=== PATIENT | male | born 1950 | race Caucasian/White ===

== ENCOUNTER 2016-05-04 08:34 | Day surgery (SDC) | payer OTHER ==
[~2016-05-04 08:34] MED LIST: RINGERS SOLUTION,LACTATED 1,000 ML IV PRN
[2016-05-04] MEDS ORDERED: RINGERS SOLUTION,LACTATED 1,000 ML IV ONE (09:09)
[2016-05-04 11:40] VITALS: BP 142/69
--- NOTE | 2016-05-04 17:41 | OR ---
Operative Report - Dictated Report Narrative: OPERATIVE REPORT DATE OF OPERATION: 05/04/2016 PREOPERATIVE DIAGNOSIS: No prior dedicated colon studies. Family history of colon cancer. POSTOPERATIVE DIAGNOSIS: Poor prep with incomplete colonoscopy OPERATION: Attempted Colonoscopy SURGEON: Sabrina Lehman MD ANESTHESIA: LAQUITA Strauss CRNA INDICATIONS FOR PROCEDURE: The patient is a 65-year-old male referred by Dr. Arcos. He has had no previous dedicated colon studies. The patient's father had colon cancer in his 70s. FINDINGS: Extremely poor prep precluding diagnostic exam. NARRATIVE OF PROCEDURE: The patient was identified in the holding area, and prior to the administration of anesthetic, a multidisciplinary timeout was observed. With the patient in the left lateral position and after the administration of intravenous sedation, the perineum was inspected. There was no evidence of pilonidal disease or skin breakdown. The external appearance of the anus was normal. Sphincter tone was good. The flexible fiberoptic colonoscope was inserted into the rectum which was insufflated with air. The rectal mucosa and submucosal vascular pattern appeared normal, however the prep was seen to be incomplete with a large amount of liquid and particulate stool remaining. The rectum was suctioned and irrigated until the scope could be advanced into the sigmoid colon. The scope was advanced to approximately 80 cm however it was apparent that the amount of liquid and particulate stool present would preclude a diagnostic quality exam. Therefore the scope was withdrawn to the level of the rectum. As much insufflated air as possible was removed. The scope was withdrawn from the patient and the procedure terminated. The patient tolerated the anesthetic and procedure well without complication and was transferred back to the ambulatory surgery area awake and in stable condition. The patient remained stable throughout a period of postoperative observation. He denied abdominal discomfort, was able to tolerate by mouth intake, and was up without assistance. I shared the operative findings with the patient and he was given copies of the photographs which appear in the medical record. I explained that further preparation would be necessary for diagnostic exam which can be accomplished on 05/06/2016. He was discharged home with instructions not to engage in hazardous activity today, but may resume normal activity tomorrow, and maintaining clear liquid diet. He is to use sliding scale insulin. He is to hold Lantus. He is to continue those other medications as listed in the history and physical exam. A prescription for Suprep prep kit was sent electronically, which he is to use on 05/05/2016. His daughter was present and the instructions were reviewed with her as well. He will return for colonoscopy on 05/06/2016. Reviewed and electronically signed
== END 2016-05-04 08:35 | disposition home or self-care (01) ==
LOC: AMB 08:34
PROVIDERS: ATTEND Surgery
PROC: 0DJD8ZZ Inspection of Lower Intestinal Tract, Via Natural or Artificial Opening Endoscopic (ICD-10-PCS; principal; 2016-05-04 09:50)
DX: Z12.11 Encounter for screening for malignant neoplasm of colon (principal); I12.9 Hypertensive chronic kidney disease with stage 1 through stage 4 chronic kidney disease, or unspecified chronic kidney disease; E11.22 Type 2 diabetes mellitus with diabetic chronic kidney disease; N18.3 Chronic kidney disease, stage 3 (moderate); E78.00 Pure hypercholesterolemia, unspecified; Z68.43 Body mass index [BMI] 50.0-59.9, adult; Z80.0 Family history of malignant neoplasm of digestive organs

== ENCOUNTER 2016-05-06 05:44 | Day surgery (SDC) | payer OTHER ==
[2016-05-06] MEDS ORDERED: RINGERS SOLUTION,LACTATED 1,000 ML IV PRN (06:00)
[2016-05-06] MEDS ORDERED: RINGERS SOLUTION,LACTATED 1,000 ML IV ONE (06:09)
[2016-05-06 09:27] VITALS: BP 124/57
--- NOTE | 2016-05-06 18:46 | OR ---
Operative Report - Dictated Report Narrative: OPERATIVE REPORT DATE OF OPERATION: 05/06/2016 PREOPERATIVE DIAGNOSIS: No prior dedicated colon studies. Poor prep and incomplete exam on 05/04/2016 POSTOPERATIVE DIAGNOSIS: Obstructive sleep apnea. 0.5 cm lobulated polyp in the transverse colon and 4 mm polyp in the ascending colon (pathology pending) OPERATION: Colonoscopy with hot biopsy forceps polypectomy in the ascending colon and snare polypectomy in the proximal transverse colon SURGEON: Sabrina Lehman MD ANESTHESIA: MAC Ryan Peoples CRNA INDICATIONS FOR PROCEDURE: The patient is a 65-year-old male referred for initial colon screening by Dr. Arcos. Colonoscopy was attempted on 05/04/2016 however the patient's prep was poor and he has undergone an additional day of clear liquids with a second Suprep colon prep, and is brought for re-exam. FINDINGS: Profound obstructive sleep apnea complicating his sedation. Very capacious colon with 0.5 cm lobulated polyp in the transverse colon and 4 mm polyp in the ascending colon. Remaining liquid stool however this could be suctioned sufficient for diagnostic exam. NARRATIVE OF PROCEDURE: The patient was identified in the holding area, and prior to the administration of anesthetic, a multidisciplinary timeout was observed. With the patient in the left lateral position and after the administration of intravenous sedation, the perineum was inspected. There was no evidence of pilonidal disease or skin breakdown. The external appearance of the anus was normal. Sphincter tone was good. The flexible fiberoptic colonoscope was inserted into the rectum which was insufflated with air. The rectal mucosa and submucosal vascular pattern appeared normal, the prep was seen to be only fair with a large amount of liquid material remaining. Suction was utilized to evacuate the rectum and sigmoid until the scope could be advanced. The scope was advanced through the sigmoid colon, up the descending colon, and around the splenic flexure where the triangular haustral architecture of the transverse colon was seen. The scope was advanced across the transverse colon where distal to the hepatic flexure a 0.5 cm lobulated area of polypoid change was encountered. This was biopsied and then thoroughly destroyed with electrocautery. The last fragments were amputated with cautery snare. The area appeared to be complete and hemostatic. The scope was advanced around the hepatic flexure to the cecum, where the confluence of tenia and the ileocecal valve were identified. The mucosa at this level appeared normal. The scope was then slowly withdrawn in a circular fashion so that all aspects of colonic mucosa were inspected. In the distal ascending colon a 0.4 cm area of polypoid change was encountered. There was profound respiratory motion due to the patient's underlying MAYNOR and the polyp could not be grasped. It was instead destroyed in place with repeated applications of electrocautery until it appeared to be completely denatured and hemostatic. The colon was very capacious in character and slightly redundant and course. The haustral architecture appeared well preserved throughout with no evidence of external compression. The mucosa and submucosal vascular pattern appeared normal, specifically there was no gross evidence to suggest colitis or inflammatory bowel disease and no AV malformations were seen. No fredo diverticular openings were demonstrated. The scope was gradually withdrawn to the level of the rectum. As much insufflated air as possible was removed. The scope was withdrawn from the patient and the procedure terminated. The patient tolerated the anesthetic poorly due to his obstructive sleep apnea, however his SaO2 was maintained at acceptable levels throughout the procedure. There were no complications to the surgical procedure itself, however, and he was transferred back to the ambulatory surgery area awake and in stable condition. The patient remained stable throughout a period of postoperative observation. He denied abdominal discomfort, was able to tolerate by mouth intake, and was up without assistance. I shared the operative findings with the patient and he was given copies of the photographs which appear in the medical record. He was discharged home with instructions not to engage in hazardous activity today, but may resume normal activity tomorrow, and advance diet as tolerated. He is to continue those medications as listed in the history and physical exam. I made arrangements to contact him with the biopsy reports and will make additional recommendations for treatment and follow-up based upon those results. Reviewed and electronically signed]
== END 2016-05-06 05:45 | disposition home or self-care (01) ==
LOC: AMB 05:44
PROVIDERS: ATTEND Surgery
PROC: 0DBL8ZX Excision of Transverse Colon, Via Natural or Artificial Opening Endoscopic, Diagnostic (ICD-10-PCS; 2016-05-06)
PROC: 0DBK8ZX Excision of Ascending Colon, Via Natural or Artificial Opening Endoscopic, Diagnostic (ICD-10-PCS; principal; 2016-05-06 07:00)
DX: Z12.11 Encounter for screening for malignant neoplasm of colon (principal); D12.2 Benign neoplasm of ascending colon; D12.3 Benign neoplasm of transverse colon; I12.9 Hypertensive chronic kidney disease with stage 1 through stage 4 chronic kidney disease, or unspecified chronic kidney disease; N18.3 Chronic kidney disease, stage 3 (moderate); E11.22 Type 2 diabetes mellitus with diabetic chronic kidney disease; E78.00 Pure hypercholesterolemia, unspecified; I73.9 Peripheral vascular disease, unspecified; M19.90 Unspecified osteoarthritis, unspecified site; G47.33 Obstructive sleep apnea (adult) (pediatric); Z68.43 Body mass index [BMI] 50.0-59.9, adult; Z80.0 Family history of malignant neoplasm of digestive organs

== ENCOUNTER 2017-02-27 10:30 | Emergency (ER) | payer OTHER ==
[2017-02-27 10:38] VITALS: BP 143/70
--- NOTE | 2017-02-27 10:51 | ERNOTE ---
Allergy Symptoms - ER Time Seen by Provider: 02/27/17 10:39 Source: patient, family Exam Limitations: no limitations Immunizations: IMMUNIZATION HX Immunizations Up to Date Yes History of Influenza Vaccine Yes Hx Pneumococcal Vaccination Yes Allergies/Adverse Reactions: Allergies gabapentin Allergy (Mild, Verified 02/27/17 10:38) EDEMA Penicillins Allergy (Mild, Verified 02/27/17 10:38) Hives Home Medications: HOME MEDICATIONS Amitriptyline HCl [Elavil] 50 mg PO HS 04/24/13 [Last Taken 04/23/13 21:00] Enalapril Maleate 20 mg PO BID 04/24/13 [Last Taken 05/05/16] Furosemide [Lasix] 80 mg PO BID 12/01/13 [Last Taken Unknown] Tamsulosin HCl [Flomax] 0.4 mg PO DAILY 12/01/13 [Last Taken Unknown] hydrALAZINE HCL [Apresoline] 25 mg PO TID 12/01/13 [Last Taken Unknown] Allopurinol [Zyloprim] 300 mg PO BID 04/30/16 [Last Taken 05/05/16] Aspirin [Aspirin Enteric Coated] 81 mg PO DAILY 04/30/16 [Last Taken Unknown] Atorvastatin Calcium [Lipitor] 40 mg PO HS 04/30/16 [Last Taken Unknown] Blood-Glucose Meter [Blood Glucose Monitoring] 1 each [facility] 04/30/16 [Last Taken Unknown] Fesoterodine Fumarate [Toviaz] 4 mg PO DAILY 04/30/16 [Last Taken Unknown] Finasteride [Proscar] 5 mg PO DAILY 04/30/16 [Last Taken Unknown] Cholecalciferol (Vitamin D3) [Vitamin D3] 1,000 unit PO DAILY 02/27/17 [Last Taken Unknown] Clotrimazole [Mycelex Rachel] 10 mg MM 5XD #50 rachel 02/27/17 [Last Taken Unknown] Insulin Aspart [Novolog] 40 units SC TIDWM 02/27/17 [Last Taken Unknown] Insulin Detemir [Levemir] 75 units SC BID 02/27/17 [Last Taken Unknown] Metoprolol Tartrate [Lopressor] 50 mg PO BID 02/27/17 [Last Taken Unknown] - History of Present Illness Narrative: Patient noticed lip and tongue swelling three days ago in the evening, no throat swelling, no difficulty breathing, symptoms are not getting worse but also not getting better. He denies any new medications. He is a diabetic Date (Duration): 02/24/17 Timing: Present: constant Location skin rash/itching: Present: none Location swelling: Present: lip(s), tongue Identified cause?: No Exposure: Present: none, ERVIN inhibitor. Absent: antibiotic, aspirin, NSAID Modifying Factors (Improves): Reports: other - hasn't tried any Modifying Factors (Worsens): Reports: nothing Similar symptoms previously: No Prior Treament: Denies: recently seen, similar symptoms before Review of Systems - Review of Systems Constitutional: Absent: recent illness, fever ENT: Present: See HPI. Absent: nose congestion, nasal drainage, sore throat Respiratory: Absent: shortness of breath, cough Cardiology: Absent: chest pain Gastrointestinal/Abdominal: Absent: nausea, vomiting, diarrhea, abdominal pain Genitourinary: Present: no symptoms reported Musculoskeletal: Present: no symptoms reported Skin: Absent: rash Neurological: Absent: headache, weakness, numbness - Patient's Past Medical History Patient History - Medical: Diabetes Type 2 Insulin Dependent, Obesity, Osteoarthritis, Renal Failure, Other Patient History - Cardiac/Respiratory: Coronary Heart Disease, Hypertension, Hyperlipidemia, Peripheral Vascular Disease, Sleep Apnea Patient History - Cancer: No Hx of Cancer Patient History - Surgical Procedures: Cataracts, Colonoscopy, Total Knee Replacement, T & A, Vasectomy, Other, Hernia Repair, Orthopedic, Urology Patient History - Other: None - Family History Father Family History - Medical: , No pertinent hx Family History - Cardiac/Respiratory: No pertinent hx Family History - Cancer: Colon, Leukemia, Prostate Mother Family History - Medical: , No pertinent hx Family History - Cardiac/Respiratory: No pertinent hx Family History - Cancer: Breast Sister Family History - Medical: No pertinent hx Family History - Cardiac/Respiratory: Other Family History - Cancer: No pertinent family hx - Social History Abuse History: No History of abuse Psych History: No pertinent hx Smoking Status: Never smoker Have you smoked in the past 12 months: No - Immunizations Immunizations Up to Date: Yes Hx Pneumococcal Vaccination: Yes History of Influenza Vaccine: Yes Physical Exam - Physical Exam General Appearance: Present: wd/wn, alert, no apparent distress, obese Eye Exam: Normal inspection: bilateral, PERRL: bilateral Ears, Nose, Throat: Present: other - white non removable plaues on both cheeks, superficial ulceration on lower lip and tongue Neck: Present: normal inspection Respiratory: Present: no respiratory distress, normal breath sounds, no accessory muscle use, lungs clear Cardiovascular/Chest: Present: regular rate, rhythm, no murmur Gastrointestinal/Abdominal: Present: nontender, soft Neurological Exam: Present: alert, oriented, normal mood/affect Skin Exam: Present: normal color, warm/dry. Absent: skin rash ED Progress - Vital Signs Patient's Vital Signs:: I have reviewed the patient's vital signs. Vital Signs: Vital Signs 02/27/17 10:34 Temperature 37.0 C Respiratory 74 H Rate Blood Pressure 143/70 O2 Sat by Pulse 91 Oximetry - Progress/Reassessment Chief Complaint: Allergic Reaction Progress Note-Subjective: 02/27/17 11:00 discussed diagnosis and plan patient's HbA1c in the 8 and 9 range the last six months, most likely contributing to oral thrush Departure Clinical Impression: Thrush, oral - Departure Disposition: Home self-care Condition: Stable Instructions: Stomatitis, [id number] Additional Instructions: call your doctor if you don't get better in 3-4days Referrals: Edilia Arcos DO [Primary Care Provider] - Prescriptions: Clotrimazole [Mycelex Rachel] 10 mg MM 5XD #50 rachel
== END 2017-02-27 11:11 | disposition home or self-care (01) ==
LOC: ER 10:30
DX: B37.0 Candidal stomatitis (principal); E11.9 Type 2 diabetes mellitus without complications; Z79.4 Long term (current) use of insulin; I50.9 Heart failure, unspecified; I10 Essential (primary) hypertension; E78.5 Hyperlipidemia, unspecified

== ENCOUNTER 2018-02-17 09:13 | Inpatient (IN) | payer MEDICARE, OTHER ==
[~2018-02-17 09:13] MED LIST changes: -RINGERS SOLUTION,LACTATED 1,000 ML IV PRN; +ceFAZolin SODIUM 1 GM VIAL IV PRN
[2018-02-17] MEDS: RINGER'S SOLUTION,LACTATED 1,000 ML IV PRN ×2 (10:07→15:01)
--- NOTE | 2018-02-17 10:32 | ANES ---
Anesthesia Pre Procedure Eval Vitals/Labs: Last Vital Signs Temp 37.3 C 02/17/18 09:24 Pulse 71 02/17/18 09:24 Resp 16 02/17/18 09:24 BP 149/67 02/17/18 09:24 Pulse Ox 98 02/17/18 09:24 HOME MEDICATIONS Amitriptyline HCl [Elavil] 50 mg PO HS 04/24/13 [Last Taken 04/23/13 21:00] Furosemide [Lasix] 80 mg PO BID 12/01/13 [Last Taken Unknown] Tamsulosin HCl [Flomax] 0.4 mg PO DAILY 12/01/13 [Last Taken Unknown] hydrALAZINE HCL [Apresoline] 25 mg PO TID 12/01/13 [Last Taken Unknown] Allopurinol [Zyloprim] 300 mg PO BID 04/30/16 [Last Taken 05/05/16] Blood-Glucose Meter [Blood Glucose Monitoring] 1 ea [facility] 04/30/16 [Last Taken Unknown] Fesoterodine Fumarate [Toviaz] 4 mg PO DAILY 04/30/16 [Last Taken Unknown] Finasteride [Proscar] 5 mg PO DAILY 04/30/16 [Last Taken Unknown] Cholecalciferol (Vitamin D3) [Vitamin D3] 1,000 unit PO DAILY 02/27/17 [Last Taken Unknown] insulin detemir (U- 100) 100 unit/mL subcutaneous solution 80 unit SUB-Q BID #15 ml 10/19/17 [Last Taken Unknown] enalapril maleate 20 mg tablet 20 mg PO BID #60 tab 10/26/17 [Last Taken Unknown] metoprolol tartrate 50 mg tablet 50 mg PO BID #60 tab 10/26/17 [Last Taken Unknown] exenatide ER 2 mg subcutaneous extended release suspension 2 mg SUB-Q Q7D #4 ea 10/29/17 [Last Taken Unknown] insulin aspart U- 100 100 unit/mL subcutaneous solution 50 unit SUB-Q TIDWM #15 ml 11/17/17 [Last Taken Unknown] atorvastatin 40 mg tablet 40 mg PO HS #30 tab 01/17/18 [Last Taken Unknown] glimepiride 4 mg tablet 4 mg PO DAILY #90 tab 02/02/18 [Last Taken Unknown] hydrocodone 5 mg-acetaminophen 325 mg tablet See Rx Instructions .ROUTE .COMPLEX #30 tab 02/04/18 [Last Taken Unknown] Allergies/Adverse Reactions: Allergies Allergy/AdvReac Type Severity Reaction Status Date / Time gabapentin Allergy Mild EDEMA Verified 02/17/18 09:32 Penicillins Allergy Mild Hives Verified 02/17/18 09:32 - Planned Procedure Planned Procedure: prophylactic Nail Fixation proximal Femur/HDWR rem Medication List Reviewed:: Yes Allergies Verified: Yes Medical History (Last Reviewed 02/17/18 @ 10:31 by Carlos Kaufman CRNA) Diabetic neuropathy (Chronic) Diabetic nephropathy associated with type 2 diabetes mellitus (Chronic) MAYNOR on CPAP (Chronic) Gout (Chronic) CKD (chronic kidney disease) stage 3, GFR 30-59 ml/min (Chronic) Hyperlipidemia (Chronic) Hypertension (Chronic) Type II diabetes mellitus (Chronic) Malignancies bone Knee MCL sprain Onset Date: 09/08/17 Chronic kidney disease Onset Date: 06/2016 Stage 3 Diabetes Onset Date: Unknown Diabetic neuropathy Onset Date: ~06/2016 Essential (primary) hypertension Onset Date: 06/2016 Gout Onset Date: 06/26/16 Obesity Onset Date: ~2010 Osteoarthritis Onset Date: Unknown Peripheral vascular disease Onset Date: 2012 Pes planus Onset Date: ~03/2013 Surgical History (Last Reviewed 02/17/18 @ 10:31 by Carlos Kaufman CRNA) H/O colonoscopy Onset Date: 06/2016 [place]-tubular adenomas History of carpal tunnel release Onset Date: 12/2013 [place]-left History of cataract removal with insertion of prosthetic lens Onset Date: 2004 S/P right knee arthroscopy Onset Date: 1998 Dr. Callahan Femoral distal fracture Onset Date: 08/2015 [facility]-cyvae-FAF H/O excision of ganglion cyst Onset Date: 1999 right foot-Dr. Spencer H/O total knee replacement Onset Date: 04/201004/15/10-Dr. Sin History of YAG laser capsulotomy of lens Onset Date: 200704/18/07, 05/16/07 left, right History of cardiac cath Onset Date: 2004 History of cystoscopy Onset Date: 12/2015 History of knee replacement Onset Date: 04/2007 left-Dr. Callahan History of vasectomy Onset Date: Unknown Hx of tonsillectomy Onset Date: Unknown Retinal detachment Onset Date: 03/2008 S/P TURP Onset Date: 09/2016 Dr. Hodge S/P repair of inguinal hernia Onset Date: 1971 right Family History (Last Reviewed 02/17/18 @ 10:31 by Carlos Kaufman CRNA) Father Cancer colon, prostate, leukemia Mother Cancer breast - Family Anesthesia History Family History:: no untoward family reactions to anesthesia - Airway/Neck/Teeth Neck Exam: limited range of motion Mallampatti Score: 4 Thyromental (T-M) distance: > 6 cm Mandibulo Hyoid distance: > 3 cm - Respiratory Respiratory: lungs clear Smoking Status: Never smoker Sleep Apnea currently treated: Yes - Cardiovascular Patient History - Cardiac/Respiratory: Hypertension, Hyperlipidemia Tolerates Activity: Poor Heart Sounds: S1 & S2, Regular - Anesthesia Assessment and Plan ASA Class: PS, III Anesthesia Type Plan: General LMA
[2018-02-17] MEDS ORDERED: BUPIVACAINE HCL/EPINEPHRINE 50 ML VIAL IJ ONE (15:53)
[2018-02-17] MEDS ORDERED: oxyCODONE HCL/ACETAMINOPHEN 1 TAB TABLET PO PRN (17:11)
[2018-02-17] MEDS ORDERED: MORPHINE SULFATE 2 MG/ML DISP.SYRIN IV PRN (17:11)
[2018-02-17] MEDS ORDERED: ZOLPIDEM TARTRATE 5 MG TABLET PO PRN (17:11)
[2018-02-17] MEDS ORDERED: ACETAMINOPHEN 500 MG TABLET PO PRN (17:11)
[2018-02-17] MEDS ORDERED: MAGNESIUM HYDROXIDE 30 ML UDC PO PRN (17:11)
[2018-02-17] MEDS ORDERED: diphenhydrAMINE HCL 50 MG/ML VIAL IV PRN (17:11)
[2018-02-17] MEDS ORDERED: MAG HYDROX/ALUMINUM HYD/SIMETH 30 ML UDC PO PRN (17:11)
--- NOTE | 2018-02-17 17:19 | ANES ---
Post Anesthesia Assessment - Vital Signs Vitals: Last Vital Signs Temp 36.0 C 02/17/18 17:00 Pulse 57 L 02/17/18 17:15 Resp 23 H 02/17/18 17:15 BP 126/56 02/17/18 17:15 Pulse Ox 99 02/17/18 17:15 Airway Patency: Normal - Mental Status Level Of Consciousness: Drowsy - Pain Level Pain Score: 4 - N/V Assessment Nausea/Vomiting Presence: None Dehydration:: No
--- NOTE | 2018-02-17 17:19 | ANES ---
Post Anesthesia Discharge - Transfer of Care Transfer of Care handoff given to nurse: Yes - Discharge from PACU Discharge from PACU when meets criteria: Yes
--- NOTE | 2018-02-17 17:36 | OR ---
Operative Report - Dictated Report Narrative: Date: 02/17/2018 Surgeon: Jacinto Ruiz M.D. Profile Saw Operator: Fran Chairez PA-C Preoperative diagnosis: Right pathologic intertrochanteric femur fracture Postoperative diagnosis: Right pathologic intertrochanteric femur fracture Operations and procedures: 1. Cephalo-medullary fixation right pathologic intertrochanteric femur fracture 2. Removal of deep implants right femur 3. Intraoperative interpretation of radiographs Anesthesia: Gen. with local Specimens: None Estimated blood loss: 250 Milliliters Retained implants: [employer] Trigen InterTAN 130 degree size 10 mm by 18 centimeter nail with 95 millimeter lag screw Complications: None Indications for procedure: Lloyd is a 67-year-old male with a history of previous right femur fracture as well as prostate cancer who developed right hip pain. He had an MRI which demonstrated marrow replacing lesions of the pelvis and bilateral proximal femurs concerning for metastatic disease. MRI also demonstrated what appear to be a nondisplaced fracture line through the right intertrochanteric region. We counseled him on treatment options and recommended prophylactic fixation for pain relief as well as to prevent progression of his fracture. The risks of , blood clots, bleeding, infection, nerve/tendon/blood vessel injury, malunion, nonunion, failure of implants, painful implants, arthrosis, and need for additional procedures were discussed. The extremity was marked and consent was obtained in clinic. Procedure: After marking the operative extremity in preop, the patient was taken to the operating room. A timeout was performed. IV antibiotics consisting of 2 g of Ancef were administered. A general anesthetic was induced by anesthesia, and the patient was then placed onto a fracture table with a well-padded perineal post. The non-operative leg was placed in a well-padded well leg troy in lithotomy position with an SCD on the leg. The operative leg was placed in a well-padded traction boot. Preliminary images were attained utilizing C-arm in both the AP and lateral views. This confirmed that we had obtained adequate visualization of the proximal femur and the proximal aspect of the patient's previously placed distal femoral locking plate and proximal screws in the femur. Next the hip was then prepped and draped in a standard sterile fashion. Attention was first turned towards the most proximal 2 screws of his previous distal femoral locking plate. Based on our preoperative measurements, we knew that we would have to remove the proximal 2 screws to be able to get an 18 cm short nail down. These were localized cutaneously with the C-arm and a approximately 5 cm incision was made over the lateral aspect of the proximal femur. Dissection was carried down through subcutaneous tissue to the level of the IT band which was divided longitudinally. A Liriano elevator was used to dissect down to the plate. Hohmann retractors were used anteriorly and posteriorly to expose the lateral aspect of the plate. The 2 locking caps overlying the 4 cortical locking screws of the Raulito plate were removed. On trying to remove the screws themselves, they were noted to be likely cold welded to the plate and we ended up stripping about trying to remove them with a screwdriver. We used a screw extraction set to finally remove both screws after significant effort. We then turned our attention back to placing our short nail. A guidewire was placed percutaneously proximal to the greater trochanter to carlitos a starting point at the tip of the greater trochanter centered on the lateral view. This was advanced down to the level below the lesser trochanter. A scalpel was utilized to dissect down to the greater trochanter in order to be able to advance the soft tissue protector down to bone. The entry reamer was then advanced down the proximal femur to the level of the lesser trochanter. The above nail was then selected and impacted into place. The outrigger was utilized in order to confirm the appropriate depth of the nail. The alignment device on the outrigger for the lag screw was then placed through the proximal aspect of our previous incision over the lateral femur. The guidewire was was placed into the femoral head in a center center position on AP and lateral views. A tip apex distance less than 25 mm combined was obtained. Once we felt that we had placed the guidewire in the appropriate position, it was measured. We then drilled to the appropriate depth with the drill bit for the lag screw. The lag screw was then secured in place ensuring that we were within the confines of the bone. We did not place the optional compression screw as this was a nondisplaced fracture and our construct would allow for controlled compression. He also did not place a distal interlocking screw secondary to the proximal aspect of the distal femoral locking plate being our way. The nail was secured allowing for controlled compression and the outrigger was removed. The wounds were then thoroughly irrigated. Final images were obtained. The hip was placed through range of motion and showed no crepitance. The deep fascia and IT band were closed with 0 Vicryl, the subcutaneous tissue with 3-0 Vicryl, and the skin was closed with nicci. Sterile dressings of Xeroform, 4 x 4s, ABDs, and Medipore tape were applied. All sponge, sharp, and instrument counts were correct prior to closing the wounds. The patient was then awoken and transferred to the postanesthesia care unit in stable condition.
[2018-02-17] MEDS ORDERED: RINGER'S SOLUTION,LACTATED 1,000 ML IV PRN (18:00)
[2018-02-17] MEDS: ONDANSETRON HCL/PF 2 MG/ML VIAL IV PRN (18:23)
[2018-02-17] MEDS: ceFAZolin SODIUM 2 GM in DEXTROSE 5 % IN WATER 50 ML IV SCH ×2 (19:39)
[2018-02-17] MEDS: ceFAZolin SODIUM/DEXTROSE,ISO 2 GM/50 ML BAG IV SCH (19:49)
[2018-02-17] MEDS: SENNOSIDES/DOCUSATE SODIUM 1 TAB TABLET PO SCH (20:50)
[2018-02-18] MEDS: oxyCODONE HCL/ACETAMINOPHEN 1 TAB TABLET PO PRN ×2 (03:01→07:10)
[2018-02-18] MEDS: ceFAZolin SODIUM 2 GM in DEXTROSE 5 % IN WATER 50 ML IV SCH ×4 (03:03→10:38)
[2018-02-18] MEDS: ceFAZolin SODIUM/DEXTROSE,ISO 2 GM/50 ML BAG IV SCH (03:03)
[2018-02-18 05:30] LABS: Hematocrit 30.5 % (42.0-52.0); Hemoglobin 9.9 gm/dL (13.5-18.0); Mean Cell Volume 87.1 fl (78-100); Mean Corpuscular Hemoglobin 28.3 pg (27-31); Mean Corpuscular Hgb Conc 32.5 g/dl (32-36); Mean Platelet Volume 9.5 fl (8-11.3); Platelet Count 369 K/mm3 (150-450); Red Cell Distribution Width 16.5 % (11.5-14.0); White Blood Count 11.2 K/mm3 (4.0-10.5)
[2018-02-18 05:42] LABS: Anion Gap 10.1 mmol/L (6.8-13.8); BUN/Creatinine Ratio 21.1 (9.0-21.6); Calcium * 8.2 mg/dL (7.9-10.9); Carbon Dioxide 30.3 mmol/L (24-32.6); Estimated Creat Clear 58.7; Potassium 4.4 mmol/L (3.4-4.6)
[2018-02-18] MEDS ORDERED: INSULIN DETEMIR 100 UNITS/ML VIAL SC SCH (09:00)
[2018-02-18] MEDS ORDERED: INSULIN ASPART 100 UNITS/ML VIAL SC SCH ×2 (09:00)
[2018-02-18] MEDS: FINASTERIDE 5 MG TABLET PO SCH (10:39)
[2018-02-18] MEDS: ENALAPRIL MALEATE 20 MG TABLET PO SCH ×2 (10:39→20:34)
[2018-02-18] MEDS: METOPROLOL TARTRATE 50 MG TABLET PO SCH ×2 (10:40→20:32)
[2018-02-18] MEDS: hydrALAZINE HCL 25 MG TABLET PO SCH ×3 (10:40→17:09)
[2018-02-18] MEDS: INSULIN DETEMIR 100 UNITS/ML VIAL SC SCH ×2 (10:41→20:22)
[2018-02-18] MEDS: INSULIN ASPART 100 UNITS/ML VIAL SC SCH ×3 (12:18→17:23)
[2018-02-18] MEDS: ONDANSETRON HCL/PF 2 MG/ML VIAL IV PRN ×2 (12:37→20:39)
--- NOTE | 2018-02-18 14:45 | PN ---
Subjective - Date and Time Seen Date: 02/18/18 Time: 08:10 Subjective Narrative: Patient reports no acute events overnight. He notes some mild nausea, mild pain, achy feeling of his right hip and thigh. Objective - Vitals Vitals: Last Vital Signs Temp 36.9 C 02/18/18 10:43 Pulse 77 02/18/18 14:11 Resp 20 02/18/18 10:43 BP 141/68 02/18/18 14:11 Pulse Ox 96 02/18/18 10:43 - Abnormal Lab Findings Abnormal Lab Findings: Abnormal Lab Results 02/18/18 02/18/18 Range/Units 05:21 05:21 WBC 11.2 H (4.0-10.5) K/mm3 RBC 3.50 L (4.7-6.0) M/mm3 Hgb 9.9 L (13.5-18.0) gm/dL Hct 30.5 L (42.0-52.0) % RDW 16.5 H (11.5-14.0) % Random Glucose 269 H (70-110) mg/dL - Exam Constitutional: Present: Alert, Cooperative, No distress Respiratory: Present: no respiratory distress /Rectal: Present: Other - RLE--> sensation intact to light touch, plantar flexion/dorsiflexion of the ankle 5/5, 4+/5 knee extension and flexion, distal capillary refill brisk, bandages intact, no acute draining, mild tenderness a bout right hip/thigh Appearance: Present: appropriate appearance Thoughts: Present: normal thought pattern Cauti Physician Documentation - Urinary Catheter Management Urethral (Rosenbaum) Date of Insertion: 02/17/18 Time of Insertion: 12:00 Date of Removal: 02/18/18 Time of Removal: 11:05 Assessment/Plan Plan Narrative: -67 y/o male post-op day #1 s/p cephalomedullary nailing of right intertrochanteric femur fracture - WBAT with assistance as needed - PT/OT progress as tolerated - PO diet as tolerated - PO pain medication PRN - DVT prophylaxis: lovenox, SCDs in bed, martinez hose - Maintain surgical dressing in place, monitor - Chronic medical conditions per medicine - Hgb 9.9, continue to monitor - Dispo: pain control, continue working on ambulation, plan to discharge home when all goals met - Problems/Diagnosis (1) Femur fracture, right Problem: Acute Qualifiers: Encounter type: initial encounter Femur location: intertrochanteric Fracture type: closed Fracture alignment: nondisplaced Qualified Code(s): S72.144A - Nondisplaced intertrochanteric fracture of right femur, initial encounter for closed fracture
[2018-02-18] MEDS: ENOXAPARIN SODIUM 40 MG/0.4 ML SYRG SC SCH (17:08)
[2018-02-18] MEDS: TAMSULOSIN HCL 0.4 MG CAP.SR.24H PO SCH (17:09)
[2018-02-18] MEDS: SPIRONOLACTONE 25 MG TABLET PO SCH (17:09)
[2018-02-18] MEDS: AMITRIPTYLINE HCL 50 MG TABLET PO SCH (20:30)
[2018-02-18] MEDS: ROSUVASTATIN CALCIUM 20 MG TABLET PO SCH (20:31)
[2018-02-18] MEDS: SENNOSIDES/DOCUSATE SODIUM 1 TAB TABLET PO SCH (20:31)
[2018-02-18] MEDS ORDERED: INSULIN DETEMIR 100 UNITS/ML VIAL SC ONE (21:00)
[2018-02-19 07:27] LABS: Hematocrit 32.2 % (42.0-52.0); Hemoglobin 10.3 gm/dL (13.5-18.0); Mean Cell Volume 88.7 fl (78-100); Mean Corpuscular Hemoglobin 28.4 pg (27-31); Mean Platelet Volume 9.2 fl (8-11.3); Platelet Count 347 K/mm3 (150-450); Red Blood Count 3.63 M/mm3 (4.7-6.0); Red Cell Distribution Width 16.9 % (11.5-14.0); White Blood Count 11.8 K/mm3 (4.0-10.5)
[2018-02-19 07:30] LABS: Anion Gap 9.4 mmol/L (6.8-13.8); BUN/Creatinine Ratio 19.6 (9.0-21.6); Calcium * 8.7 mg/dL (7.9-10.9); Carbon Dioxide 32.3 mmol/L (24-32.6); Estimated Creat Clear 65.9; Potassium 3.7 mmol/L (3.4-4.6)
[2018-02-19] MEDS: INSULIN ASPART 100 UNITS/ML VIAL SC SCH ×5 (08:04→17:14)
--- NOTE | 2018-02-19 08:20 | PN ---
Subjective - Date and Time Seen Date: 02/19/18 Time: 08:17 Subjective Narrative: Patient reports no acute events. He states his pain is well controlled, he has no nausea at this point. He is sitting up in the chair upon presentation. Objective - Vitals Vitals: Last Vital Signs Temp 35.9 C L 02/19/18 07:45 Pulse 55 L 02/19/18 07:45 Resp 20 02/19/18 07:45 BP 127/67 02/19/18 07:45 Pulse Ox 97 02/19/18 07:45 - Abnormal Lab Findings Abnormal Lab Findings: Abnormal Lab Results 02/19/18 02/19/18 Range/Units 07:08 07:08 WBC 11.8 H (4.0-10.5) K/mm3 RBC 3.63 L (4.7-6.0) M/mm3 Hgb 10.3 L (13.5-18.0) gm/dL Hct 32.2 L (42.0-52.0) % RDW 16.9 H (11.5-14.0) % Random Glucose 52 L D (70-110) mg/dL - Exam Constitutional: Present: Alert, Cooperative, No distress Respiratory: Present: no respiratory distress Extremity: Present: other - RLE--> SILT, 5/5 PF/DF, distal cap refill brisk, mild ttp about right hip, no significant drainage Appearance: Present: appropriate appearance Eye contact: Present: cooperative Cauti Physician Documentation - Urinary Catheter Management Urethral (Rosenbaum) Date of Insertion: 02/17/18 Time of Insertion: 12:00 Date of Removal: 02/18/18 Time of Removal: 11:05 Assessment/Plan Plan Narrative: -67 y/o male post-op day #2 s/p cephalomedullary nailing of right intertrochanteric femur fracture - WBAT with assistance as needed - PT/OT progress as tolerated - PO diet as tolerated - PO pain medication PRN - DVT prophylaxis: lovenox, SCDs in bed, martinez hose - Maintain surgical dressing in place, monitor - Chronic medical conditions per medicine - Hgb 10.3, continue to monitor - Dispo: continue toward PT goals, pain control, discharge home with home health - Problems/Diagnosis (1) Femur fracture, right Problem: Acute Qualifiers: Encounter type: initial encounter Femur location: intertrochanteric Fracture type: closed Fracture alignment: nondisplaced Qualified Code(s): S72.144A - Nondisplaced intertrochanteric fracture of right femur, initial encounter for closed fracture
[2018-02-19] MEDS: INSULIN DETEMIR 100 UNITS/ML VIAL SC SCH ×2 (08:58→21:09)
[2018-02-19] MEDS ORDERED: INSULIN DETEMIR 100 UNITS/ML VIAL SC ONE (08:59)
[2018-02-19] MEDS: oxyCODONE HCL/ACETAMINOPHEN 1 TAB TABLET PO PRN ×3 (09:48→21:05)
[2018-02-19] MEDS: METOPROLOL TARTRATE 50 MG TABLET PO SCH ×2 (09:49→21:07)
[2018-02-19] MEDS: FINASTERIDE 5 MG TABLET PO SCH (09:49)
[2018-02-19] MEDS: SPIRONOLACTONE 25 MG TABLET PO SCH (09:49)
[2018-02-19] MEDS: hydrALAZINE HCL 25 MG TABLET PO SCH ×3 (09:49→17:06)
[2018-02-19] MEDS: ENALAPRIL MALEATE 20 MG TABLET PO SCH ×2 (09:50→21:08)
[2018-02-19] MEDS: ENOXAPARIN SODIUM 40 MG/0.4 ML SYRG SC SCH (17:05)
[2018-02-19] MEDS: TAMSULOSIN HCL 0.4 MG CAP.SR.24H PO SCH (17:06)
[2018-02-19] MEDS: AMITRIPTYLINE HCL 50 MG TABLET PO SCH (21:06)
[2018-02-19] MEDS: ROSUVASTATIN CALCIUM 20 MG TABLET PO SCH (21:06)
[2018-02-19] MEDS: SENNOSIDES/DOCUSATE SODIUM 1 TAB TABLET PO SCH (21:07)
[2018-02-20] MEDS: INSULIN ASPART 100 UNITS/ML VIAL SC SCH ×2 (06:58→11:56)
[2018-02-20] MEDS: oxyCODONE HCL/ACETAMINOPHEN 1 TAB TABLET PO PRN ×2 (07:21→16:34)
[2018-02-20] MEDS: SPIRONOLACTONE 25 MG TABLET PO SCH (08:23)
[2018-02-20] MEDS: FINASTERIDE 5 MG TABLET PO SCH (08:23)
[2018-02-20] MEDS: hydrALAZINE HCL 25 MG TABLET PO SCH ×3 (08:23→16:35)
[2018-02-20] MEDS: ENALAPRIL MALEATE 20 MG TABLET PO SCH (08:23)
[2018-02-20] MEDS: METOPROLOL TARTRATE 50 MG TABLET PO SCH (08:23)
[2018-02-20] MEDS: INSULIN DETEMIR 100 UNITS/ML VIAL SC SCH (08:24)
--- NOTE | 2018-02-20 13:23 | DS ---
Description of Stay: The patient was admitted on 02/17/18 and taken to the OR for cephalomedullary fixation of a R pathologic intertrochanteric femur fracture. He tolerated the procedure well and there were no complications. He was admitted to the floor postoperatively where he remained stable. He resumed a normal diet and normal bladder and bowel function. He made gains with PT and was deemed stable for discharge home on 02/20/18 with home health. Procedures Performed: see notes below List Procedures: Cephalomedullary nailing of right pathologic intertrochanteric femur fracture - 02/17/18 Results and Findings: Lab Pending Results 02/18/18 05:21: WBC 11.2 H, RBC 3.50 L, Hgb 9.9 L, Hct 30.5 L, MCV 87.1, MCH 28.3, MCHC 32.5, RDW 16.5 H, Plt Count 369, MPV 9.5 02/18/18 05:21: Sodium 135, Plasma Sodium 138, Potassium 4.4, Chloride 99, Carbon Dioxide 30.3, Anion Gap 10.1, BUN 23, Creatinine 1.09, Est GFR (Non-Af Amer) 72, BUN/Creatinine Ratio 21.1, Random Glucose 269 H, Calcium 8.2 02/19/18 07:08: WBC 11.8 H, RBC 3.63 L, Hgb 10.3 L, Hct 32.2 L, MCV 88.7, MCH 28.4, MCHC 32.0, RDW 16.9 H, Plt Count 347, MPV 9.2 02/19/18 07:08: Sodium 137, Plasma Sodium 136, Potassium 3.7, Chloride 99, Carbon Dioxide 32.3, Anion Gap 9.4, BUN 19, Creatinine 0.97, Est GFR (Non-Af Amer) 83, BUN/Creatinine Ratio 19.6, Random Glucose 52 L D, Calcium 8.7 Discharge Location: Home Disposition: Home Health Service Home Health Agency: [facility] Home Health Condition: Good Discharge Activity: Activity as tolerated Discharge Diet: General/regular food Referrals: Edilia Arcos DO [Primary Care Provider] - Additional Patient Instructions (free text): [facility] new. Nursing, bath aide and PT. Fax discharge orders and medications and call report. You will need to reschedule your kidney biopsy at [facility] once you are off lovenox. You must be off all blood thinners for 7 days prior to biopsy. Orthopedic Discharge Instructions: 1. WBAT, ROM as tolerated. 2. Change dressings every 2-3 days as needed with 4x4 gauze and tape. 3. Keep wounds completely dry. 4. Lovenox for 7 more days followed by 325 mg ASA daily for 6 weeks. 5. Knee high martinez hose. 6. Home PT for mobility and strengthening. 7. Follow up in Orthopedic Clinic in 2 weeks. Prescriptions (Any new or edited meds): oxyCODONE HCL/ACETAMINOPHEN [Percocet 5 MG/325 MG] 1 - 2 tab PO Q4H PRN #75 tablet PRN Reason: Severe Pain (Pain Scale 7-10) Complete Home Medications List: Complete Home Medication List: Amitriptyline HCl [Elavil] 50 mg PO HS 04/24/13 Furosemide [Lasix] 80 mg PO BID 12/01/13 Tamsulosin HCl [Flomax] 0.4 mg PO DAILY 12/01/13 hydrALAZINE HCL [Apresoline] 25 mg PO TID 12/01/13 Blood-Glucose Meter [Blood Glucose Monitoring] 1 ea [facility] 04/30/16 Fesoterodine Fumarate [Toviaz] 4 mg PO DAILY 04/30/16 Finasteride [Proscar] 5 mg PO DAILY 04/30/16 Cholecalciferol (Vitamin D3) [Vitamin D3] 1,000 unit PO DAILY 02/27/17 insulin detemir (U- 100) 100 unit/mL subcutaneous solution 80 unit SUB-Q BID #15 ml 10/19/17 enalapril maleate 20 mg tablet 20 mg PO BID #60 tab 10/26/17 metoprolol tartrate 50 mg tablet 50 mg PO BID #60 tab 10/26/17 exenatide ER 2 mg subcutaneous extended release suspension 2 mg SUB-Q Q7D #4 ea 10/29/17 atorvastatin 40 mg tablet 40 mg PO HS #30 tab 01/17/18 glimepiride 4 mg tablet 4 mg PO DAILY #90 tab 02/02/18 hydrocodone 5 mg-acetaminophen 325 mg tablet See Rx Instructions .ROUTE .COMPLEX #30 tab 02/04/18 Insulin Lispro [Humalog] 50 unit SQ AC 02/18/18 Insulin Lispro [Humalog] See Protocol SC AC 02/18/18 Spironolactone 25 mg PO DAILY 02/18/18 allopurinol 300 mg tablet 300 mg PO BID #60 tab 02/18/18 oxyCODONE HCL/ACETAMINOPHEN [Percocet 5 MG/325 MG] 1 - 2 tab PO Q4H PRN #75 tablet 02/20/18
[2018-02-20] MEDS: ENOXAPARIN SODIUM 40 MG/0.4 ML SYRG SC SCH (16:30)
[2018-02-20] MEDS: TAMSULOSIN HCL 0.4 MG CAP.SR.24H PO SCH (16:35)
[2018-02-20 18:33] VITALS: BP 130/64
--- NOTE | 2018-02-20 21:40 | PN ---
Subjective - Date and Time Seen Date: 02/18/18 Time: 08:50 Subjective Narrative: Patient seen and examine at bedside this AM. Patient in OR yesterday evening. Patient states pain is adequately controlled at the time of my exam. Objective - Review of Systems Respiratory: Denies: Shortness of Breath Cardiac: Denies: Chest Pain Musculoskeletal Complaints: Reports: Joint Pain Misc: All systems neg except as marked - Vitals Vitals: Last Vital Signs Temp 36.8 C 02/20/18 16:35 Pulse 70 02/20/18 16:35 Resp 18 02/20/18 16:35 BP 130/64 02/20/18 16:35 Pulse Ox 98 02/20/18 16:35 - Exam Constitutional: Present: Alert, Oriented x3, Cooperative, No distress, Morbidly obese ENT Exam: Present: hearing grossly normal, moist mucous membranes Respiratory: Present: lungs clear, normal breath sounds, no respiratory distress, no accessory muscle use, decreased breath sounds Cardiovascular/Chest: Present: regular rate, rhythm Abdomen: Present: soft, nontender, obese, hypoactive Extremity: Present: lower extremity edema Skin Exam: Present: normal color, warm/dry Neurologic: Present: no motor/sensory deficits, alert, normal mood/affect, oriented x 3 Appearance: Present: appropriate appearance, appropriate insight, neat, no m rodrigue impairment Eye contact: Present: cooperative, good eye contact, normal speech Thoughts: Present: normal thought pattern, no apparent hallucination Cauti Physician Documentation - Urinary Catheter Management Urethral (Rosenbaum) Date of Insertion: 02/17/18 Time of Insertion: 12:00 Date of Removal: 02/18/18 Time of Removal: 11:05 Assessment/Plan Plan Narrative: Continue post-op cares per ortho. PT evaluation and treatment pending. Patient would benefit from [facility] at discharge once he is medically stable for discharge. Continue current medications/home medications as ordered. - Problems/Diagnosis (1) Femur fracture, right Problem: Acute Qualifiers: Encounter type: initial encounter Femur location: intertrochanteric Fracture type: closed Fracture alignment: nondisplaced Qualified Code(s): S72.144A - Nondisplaced intertrochanteric fracture of right femur, initial encounter for closed fracture (2) CKD (chronic kidney disease) stage 3, GFR 30-59 ml/min Problem: Chronic (3) Hyperlipidemia Problem: Chronic Qualifiers: Hyperlipidemia type: unspecified Qualified Code(s): E78.5 - Hyperlipidemia, unspecified (4) Hypertension Problem: Chronic Qualifiers: Hypertension type: essential hypertension Qualified Code(s): I10 - Essential (primary) hypertension (5) MAYNOR on CPAP Problem: Chronic (6) Type II diabetes mellitus Problem: Chronic Qualifiers: Diabetes mellitus terminal worker insulin use: without retirement use Diabetes mellitus complication status: with unspecified complications Qualified Code(s): E11.8 - Type 2 diabetes mellitus with unspecified complications
--- NOTE | 2018-02-20 21:40 | PN ---
Subjective - Date and Time Seen Date: 02/20/18 Time: 10:25 Subjective Narrative: Patient seen and examine at bedside this AM. No acute issues overnight. No low BGs. Objective - Review of Systems Generalized/Overall Review: Reports: No Symptoms Reported Respiratory: Denies: Shortness of Breath Cardiac: Denies: Chest Pain Abdominal: Denies: Nausea, Vomiting Musculoskeletal Complaints: Reports: Joint Pain Misc: All systems neg except as marked - Vitals Vitals: Last Vital Signs Temp 36.8 C 02/20/18 16:35 Pulse 70 02/20/18 16:35 Resp 18 02/20/18 16:35 BP 130/64 02/20/18 16:35 Pulse Ox 98 02/20/18 16:35 - Exam Constitutional: Present: Alert, Oriented x3, Cooperative, No distress, Morbidly obese ENT Exam: Present: hearing grossly normal, moist mucous membranes Respiratory: Present: lungs clear, normal breath sounds, no respiratory distress, no accessory muscle use, decreased breath sounds Abdomen: Present: soft, nontender, hypoactive Extremity: Present: lower extremity edema Skin Exam: Present: warm/dry Neurologic: Present: no motor/sensory deficits, alert, normal mood/affect, oriented x 3 Appearance: Present: appropriate appearance, appropriate insight, neat, no memory impairment Eye contact: Present: cooperative, good eye contact, normal speech Thoughts: Present: normal thought pattern, no apparent hallucination Cauti Physician Documentation - Urinary Catheter Management Urethral (Rosenbaum) Date of Insertion: 02/17/18 Time of Insertion: 12:00 Date of Removal: 02/18/18 Time of Removal: 11:05 Assessment/Plan Plan Narrative: Patient's BG improved and no lows for the past 24 hours. Patient instructed to monitor BG closely and be cautious about the amount of insulin he is taking especially if he is not eating regularly or as he normally does. Okay to discharge home today with [facility] from my standpoint. - Problems/Diagnosis (1) Femur fracture, right Problem: Acute Qualifiers: Encounter type: subsequent encounter Femur location: intertrochanteric Fracture type: closed Fracture alignment: nondisplaced (2) Hypoglycemia associated with type 2 diabetes mellitus Problem: Acute (3) Type II diabetes mellitus Problem: Chronic Qualifiers: Diabetes mellitus custodial insulin use: without termite control representative use Diabetes mellitus complication status: with unspecified complications Qualified Code(s): E11.8 - Type 2 diabetes mellitus with unspecified complications
--- NOTE | 2018-02-20 21:41 | PN ---
Subjective - Date and Time Seen Date: 02/19/18 Time: 09:55 Subjective Narrative: Patient seen and examine at bedside this AM. Patient having low BG yesterday and overnight. Objective - Review of Systems Respiratory: Denies: Shortness of Breath Cardiac: Denies: Chest Pain Abdominal: Denies: Nausea, Vomiting Musculoskeletal Complaints: Reports: Joint Pain Misc: All systems neg except as marked - Vitals Vitals: Last Vital Signs Temp 36.8 C 02/20/18 16:35 Pulse 70 02/20/18 16:35 Resp 18 02/20/18 16:35 BP 130/64 02/20/18 16:35 Pulse Ox 98 02/20/18 16:35 - Exam Constitutional: Present: Alert, Oriented x3, Cooperative, No distress, Morbidly obese ENT Exam: Present: hearing grossly normal, moist mucous membranes Respiratory: Present: lungs clear, normal breath sounds, no respiratory distress, no accessory muscle use, decreased breath sounds Cardiovascular/Chest: Present: regular rate, rhythm Abdomen: Present: soft, nontender, obese, hypoactive Extremity: Present: lower extremity edema Skin Exam: Present: normal color, warm/dry Neurologic: Present: no motor/sensory deficits, alert, normal mood/affect, oriented x 3 Appearance: Present: appropriate appearance, appropriate insight, neat, no memory impairment Eye contact: Present: cooperative, good eye contact, normal speech Thoughts: Present: normal thought pattern, no apparent hallucination Cauti Physician Documentation - Urinary Catheter Management Urethral (Rosenbaum) Date of Insertion: 02/17/18 Time of Insertion: 12:00 Date of Removal: 02/18/18 Time of Removal: 11:05 Assessment/Plan Plan Narrative: Patient's diet and PO intake markedly reduced from his usual home intake. Adjustments made to insulin regimen. I would like for the patient to remain in the hospital for at least one more day to monitor BG and make sure the patient is not having issues with ongoing hypoglycemia prior to discharge. If patient does not have any lows over the next 24 hours, he will likely be stable for discharge home with [facility] tomorrow. - Problems/Diagnosis (1) Femur fracture, right Problem: Acute Qualifiers: Encounter type: subsequent encounter Femur location: intertrochanteric Fracture type: closed Fracture alignment: nondisplaced (2) Hypoglycemia associated with type 2 diabetes mellitus Problem: Acute (3) Type II diabetes mellitus Problem: Chronic Qualifiers: Diabetes mellitus long term care pharmacist insulin use: without long term care pharmacist use Diabetes mellitus complication status: with unspecified complications Qualified Code(s): E11.8 - Type 2 diabetes mellitus with unspecified complications
== END 2018-02-20 17:30 | disposition home health service (06) | DRG 464 ==
LOC: MS 09:13
PROVIDERS: ADMIT Orthopaedic Surgery; ATTEND Orthopaedic Surgery
CPT/HCPCS: 36415; 73552; 76000; 80048; 85027; 87081; 94660; 97116; 97162; 97165; 97530; 99214; J2405